=== PATIENT | male | born 1985 | race Asian ===

== ENCOUNTER 2023-12-30 04:41 | Emergency (ER) | payer OTHER ==
[~2023-12-30] VITALS: Ht 190.5 cm; Wt 108.9 kg
[2023-12-30 05:37] VITALS: BP 119/78; TEMP 98.7; O2SAT 98
== END 2023-12-30 05:38 | disposition home or self-care (01) ==
LOC: ER 04:53
DX: S50.02XA Contusion of left elbow, initial encounter (principal); X58.XXXA Exposure to other specified factors, initial encounter; Y93.89 Activity, other specified; Y92.89 Other specified places as the place of occurrence of the external cause; Y99.8 Other external cause status
CPT/HCPCS: A4606; A4663